=== PATIENT | female | born 1970 | race Caucasian/White ===

== ENCOUNTER 2024-12-20 11:33 | Emergency (ER) | payer OTHER, SELFPAY ==
--- OUTSIDE RECORDS SUMMARY | 2024-12-20 11:35 | XMS_ITS ---
Author Organization [facility] Address [address] [place] [address] Phone Care Team Providers Care Route Returner Name Role Phone Provider, None Primary Care Provider Unavailfreddy e [facility] Status:Enrolled (Active) Start date:10/28/2024 Enrollment date:10/28/2024 Related social drivers of health:Intimate Partner Violence, Social Connections, Alcohol Use, Financial Resource Strain, Depression, Stress, Physical Activity, Food Insecurity, Transportation Needs, Housing Stability, Utilities Continued Care and Services Coordination
--- OUTSIDE RECORDS SUMMARY | 2024-12-20 11:35 | XMS_ITS | Referral Summary ---
Author Organization [facility] Address [address] [place] [address] Care Team Providers Care Band Aid Machine Operator Name Role Phone Efren Ortega MD Primary Care Provider [phone] Allergies No known active allergies Medications ibuprofen (ADVIL,MOTRIN) 600 mg tablet Take 1 tablet (600 mg total) by mouth 4 (four) times a day as needed for pain. With food 16 tablet 8 Active metFORMIN XR (GLUCOPHAGE XR) 500 mg 24 hr tablet Take 1 tablet (500 mg total) by mouth daily with breakfast 30 tablet 11 3 Active Active Problems Problem Noted Date Diagnosed Date Benign paroxysmal positional vertigo of right ea r 11/05/2022 Assessment & Plan (11/05/2022 12:26 PM INK GRINDER): Referral placed to [facility] PT. Symptoms reproduced with amirah maneuver, no nystagmus noted. Reviewed exercises to complete at home, to perform before going to bed at night and before getting out of bed in the morning. Offered meclizine, patient reports she has dramamine at home and prefers PT, has been ongoing for several years. BG today in clinic 146. EKG completed, unchanged from previous. Reviewed fall/safety precautions. Aware to follow up with any new or worsening symptoms. Encounter to establish care 10/17/2022 Assessment & Plan (10/17/2022 2:46 PM INK GRINDER): Reviewed recommended preventive screenings, vaccinations and medical history. Encourage annual flu vaccine. Wear sunscreen/protective clothing when outdoors. Mammogram ordered. Cologuard ordered. Encouraged patient to schedule PAP. Encounter for colorectal cancer screening 2022 Assessment & Plan (10/17/2022 2:45 PM INK GRINDER): Discussed colorectal cancer screening guidelines. No family history of colon cancers. Declines screening with colonoscopy; aware that it is gold standard for CRC screening. Patient is agreeable to cologuard. Aware that kit will be mailed with directions and to call office if not received in 2 weeks. To call office if no results received within 2 weeks of test submission. If normal, recommended formal screening c-scope in 3 years. Controlled type 2 diabetes m nazanin with hyperglycemia, without long-term current use of insulin 10/17/2022 Assessment & Plan (11/05/2022 12:17 PM INK GRINDER): Lab Results Component Value Date HGBA1C 7.2 (H) 10/19/2022 Patient is tolerating metformin 500 mg tablet nightly. Denies any medication side effects. Will repeat labs in 3 months. BG today 146. Assessment & Plan (10/17/2022 2:44 PM INK GRINDER): Discussed concerns for diabetes with history of gestational diabetes, family history and obesity. Will check labs. Encourage healthy lifestyle and diet. Encounter for screening mammogram for breast can cer 10/17/2022 Encounter for screening for lipid disorder 10/17 Vertigo 02/03/2021 Acute bilateral otitis media 02/03/2021 Nausea 02/03/2021 Right corneal abrasion, initial encounter 2018 Mass of breast 04/19/2015 Overview (01/04/2017): Breast mass Immunizations Immunization Administration Dates Next Due Influenza, Unspecified 10/17/2022(Deferr ed: Patient Refused),06/30/2021(Deferred: Patient Refused) MMR 10/14/2015 Tdap 10/11/2015 Social History Tobacco Use Types Packs/Day Years Used Date Smoking Tobacco: Never Smokeless Tobacco: Never Tobacco Cessation:Counseling Given: Not Answered Alcohol Use Standard Drinks/Week Comments No 0 (1 standard drink = 0.6 oz pur e alcohol) PHQ-2 Answer Date Recorded PHQ-2 Total Score (If total score is 3 or more points, staff should administer the PHQ-9) 1 10/17/2022 Comments No Sex and Gender Information Value Date Recorded Sex Assigned at Not on file Legal Sex Female 8:53 PM INK GRINDER Gender Identity Not on file Sexual Orientation Not on file Last Filed Vital Signs Vital Sign Reading Time Taken Comments Blood Pressure 126/88 11/05/2022 11:24 AM INK GRINDER Pulse 76 11/05/2022 11:24 AM INK GRINDER Temperature 36.9 C (98.5 F) 11/05/2022 11:24 AM INK GRINDER Respiratory Rate 18 11/05/2022 11:24 AM INK GRINDER Oxygen Saturation 98% 11/05/2022 11:24 AM INK GRINDER Inhaled Oxygen Concentration - - Weight 126.6 kg (279 lb) 11/05/2022 11:24 AM INK GRINDER Height 167.6 cm (5' 5.98 ) 11/05/2022 11:[address] Body Mass Index 45.05 11/05/2022 11:24 AM INK GRINDER Plan of Treatment Not on file Procedures Procedure Name Priority Date/Time Associated Diagnosis Comments EGFR Routine 10/19/2022 9:08 AM INK GRINDER Encounter to establish care HEMOGLOBIN A1C Routine 10/19/2022 9:08 AM INK GRINDER History of gestational diabetes LIPID PANEL Routine 10/19/2022 9:08 AM INK GRINDER Encounter to establish care Encounter for screening for lipid disorder SCREENING MAMMOGRAM BILATERAL W JONG Schedule Routine, Read Routine (OP Routine) 10/17/2022 4:02 PM INK GRINDER Encounter for screening mammogram for breast cancer GENITAL FLUID PAP SMEAR, THIN PREP WITH HPV EVALUATION Routine 04/08/2016 7:00 PM CDT SERUM HEPATITIS C AB Routine 03/18/2015 1:59 PM CDT from Last 3 Months or Most Recently Relevant to Health Maintenance Results * eGFR (10/19/2022 9:08 AM INK GRINDER) eGFR 96 mL/min/1. 73 m2 [facility] ([facility]IR) Comment: Interpretive Data Reference Interval Normal >/= 90 mL/min/1.73m2 Mildly decreased* 60 - 89 mL/min/1.73m2 Mildly to moderately decreased 45 - 59 mL/min/1.73m2 Moderately to severely decreased 30 - 44 mL/min/1.73m2 Severely decreased 15 - 29 mL/min/1.73m2 Kidney Failure < 15 mL/min/1.73m2 *Relative to young adult level Estimated glomerular filtration rate is determined by the 2020 CKD-EPI equation recommended by the National Kidney Foundation (A Unifying Approach to GFR Estimation: Recommendations of the NKF-ASK Task Force on Reassessing the Inclusion of Race in Diagnosing Kidney Disease, JASN 2020). The CKD-EPI equation should not be used for patients with unstable renal function and has not been validated in children and those over 70. Current interpretive data was last reviewed 2021. Testing performed by: [address] [address] Blood 10/19/2022 9:08 AM INK GRINDER 10/19/2022 2:31 PM INK GRINDER Samy Chopra SIGN BUILDER LAB BLOOD ORDERABLES Final Result SHANDRA MARTINEZ (SAMIR) 1 [facility] Department [place] [address] * (ABNORMAL) Hemoglobin A1c (10/19/2022 9:08 AM INK GRINDER) Hgb A1C 7.2(H) 4.0 - 5.6 % SHANDRA MARTINE[facility] (SAMIR) Comment:Testing performed by : [address] [address] Estimated Average Glucose 160 mg/dL SHANDRA MARTINE[facility] (SAMIR) Comment: The ADA recommends reporting an estimated Average Glucose (eAG) with all Hemoglobin A1c results using the equation derived from a study of 507 normal and diabetic adults. Minority populations were underrepresented and children were not included. (Diabetes Care 31:9755-1879, 2008). The eAG is not equivalent to a fasting glucose. Testing performed by: [address] [place]., [address] Blood 10/19/2022 9:08 AM INK GRINDER 10/19/2022 2:19 PM INK GRINDER Samy Chopra SIGN BUILDER LAB BLOOD ORDERABLES Final Result SHANDRA MARTINEZ (SAMIR) 1 [facility] Department [place] [address] * (ABNORMAL) Lipid panel (10/19/2022 9:08 AM INK GRINDER) Cholesterol 262(H) 30 - 199 mg/dL SHANDRA [facility]INE[facility] (SAMIR) Comment: Interpretive Data Ages < or = 19 years Acceptable: <170 mg/dL Borderline high: 170-199 mg/dL High: >or= 200 mg/dL Ages > or = 20 years Desirable: <200 mg/dL Borderline high: 200-239 mg/dL High: >or= 240 mg/dL Literature References: 1. Expert Panel on Integrated Guidelines for Cardiovascular Health and Risk Reduction in Children and Adolescents. Pediatrics 2011;128:S213 2. NCEP Expert Panel. Circulation 2004;110:227 Current Interpretive Data was last revised on 2018. Testing performed by: [address] [address] Triglycerides 254(H) <=149 mg/dL SHANDRA MARTINEZ (SAMIR) Comment: Interpretive Data Ages < or = 9 years Acceptable: <75 mg/dL Borderline high: 75-99 mg/dL High: >or= 100 mg/dL Ages 10 to 20 years Acceptable: <90 mg/dL Borderline high: 90-129 mg/dL High: >or= 130 mg/dL Ages > or = 20 years Desirable: <150 mg/dL Borderline high: 150-199 mg/dL High: 200-499 mg/dL Very high: >or= 499 mg/dL Literature References: 1. Expert Panel on Integrated Guidelines for Cardiovascular Health and Risk Reduction in Children and Adolescents. Pediatrics 2011;128:S213 2. NCEP Expert Panel. Circulation 2004;110:227 Current Interpretive Data was last revised on 2018. Testing performed by: [address] [address] HDL 50 >=40 mg/dL [facility] ([facility]) Comment: Interpretive Data Ages < or = 19 years Acceptable: >45 mg/dL Borderline low: 40-45 mg/dL Low: <40 mg/dL Ages > or = 20 years Desirable: >or= 60 mg/dL Low: <40 mg/dL Literature References: 1. Expert Panel on Integrated Guidelines for Cardiovascular Health and Risk Reduction in Children and Adolescents. Pediatrics 2011;128:S213 2. NCEP Expert Panel. Circulation 2004;110:227 Current Interpretive Data was last revised on 2018. Testing performed by: [facility], [address] [place] [address]., [address] LDL, calculated 161(H) <=129 mg/dL [facility] (SAMIR) Comment: Interpretive Data Ages < or = 19 years Acceptable: <110 mg/dL Borderline high: 110-129 mg/dL High: >or= 130 mg/dL Ages > or = 20 years Optimal: <100 mg/dL Near optimal: 100-129 mg/dL Borderline high: 130-159 mg/dL High: >160 mg/dL Literature References: 1. Expert Panel on Integrated Guidelines for Cardiovascular Health and Risk Reduction in Children and Adolescents. Pediatrics 2011;128:S213 2. NCEP Expert Panel. Circulation 2004;110:227 Current Interpretive Data was last revised on 2018. Testing performed by: [facility], [address] [place] [address]., [address] Non-HDL Cholesterol 212 mg/dL [facility] (SAMIR) Comment: Interpretive Data Ages < or = 19 years Acceptable: <120 mg/dL Borderline high: 120-144 mg/dL High: >145 mg/dL Ages > or = 20 years When triglycerides are >200 mg/dL, Non-HDL cholesterol is a secondary target of therapy with treatment goals that are 30 mg/dL greater than the LDL cholesterol target. Literature References: 1. Expert Panel on Integrated Guidelines for Cardiovascular Health and Risk Reduction in Children and Adolescents. Pediatrics 2011;128:S213 2. NCEP Expert Panel. Circulation 2004;110:227 Current Interpretive Data was last revised on 2018. Testing performed by: [facility], [address] [place] [address]., [address] Chol/HDL ratio 5 CERNE Paulo MARTINEZ (SAMIR) Comment:Testing performed by : [facility], [address] [place] [address], [place]., [address] Blood 10/19/2022 9:08 AM INK GRINDER 10/19/2022 2:19 PM INK GRINDER Samy Chopra SIGN BUILDER LAB BLOOD ORDERABLES Final Result SHANDRA MARTINEZ (WORDEN) 1 [facility] [place] [address] * (ABNORMAL) SCREENING MAMMOGRAM BILATERAL W JONG (10/17/2022 4:02 PM INK GRINDER) Anatomical Region Laterality Modality Breast Bilateral Mammography 10/17/2022 4:46 PM INK GRINDER Impressions 10/17/2022 4:46 PM INK GRINDER 1. Partially visualized asymmetry in the outer right breast at posterior depth on the CC view. Recommend diagnostic right breast mammogram with possible ultrasound. 2. No evidence of malignancy in the left breast. Recommend screening left breast mammogram in one year. BI-RADS: 0 - Additional imaging evaluation is necessary. The patient will be contacted. Electronically signed by: Igor Unger M.D. Narrative 10/17/2022 4:46 PM INK GRINDER EXAMINATION: SCREENING MAMMOGRAM BILATERAL W JONG ORDERING HEALTHCARE PROVIDER: SAYM CHOPRA HISTORY: Routine screening mammography. COMPARISON: Right breast ultrasound from 03/28/2015 TECHNIQUE: CC and MLO views of the bilateral breasts were obtained with digital technique using breast tomosynthesis with C view. Computer aided detection was utilized. FINDINGS: DENSITY: There are scattered fibroglandular elements in the bilateral breasts. BREASTS: There is a partially visualized asymmetry on the CC view in the outer right breast at posterior depth. There are no suspicious masses, suspicious calcifications, or other suspicious findings in the left breast. . us Samy Chopra SIGN BUILDER IMG MAMMO PROCEDURES Final Result * Genital fluid pap smear, thin prep with HPV evaluation (04/08/2016 7:00 PM CDT) Clinical information SEE NOTE CDR HISTORICAL RESULTS Comment:Information not prov ided LMP SEE NOTE CDR HISTORICAL RESULTS Comment:INFORMATION NOT PROV IDED Previous Pap SEE NOTE CDR HISTORICAL RESULTS Comment:INFORMATION NOT PROV IDED Previous biopsy SEE NOTE CDR HISTORICAL RESULTS Comment:INFORMATION NOT PROV IDED Referral specimen source SEE NOTE CDR HISTORICAL RESULTS Comment:Vagina, Cervix Statement of adequacy SEE NOTE CDR HISTORICAL RESULTS Comment: Satisfactory for evaluation. Endocervical/transformation zone component present. Age and/or menstrual status not provided Referral specimen, interp SEE NOTE CDR HISTORICAL RESULTS Comment:Negative for intraep ithelial lesion or malignancy. Variable comment SEE NOTE CDR HISTORICAL RESULTS Comment: This Pap test has been evaluated with computer assisted technology. Genital 04/08/2016 7:00 PM CDT Narrative CDR HISTORICAL RESULTS - 04/11/2016 9:00 AM CDT Test performed at [facility] [address] Director: SAMUEL SALVADOR MD Historical Provider LAB CYTOLOGY ORDERABLES F inal Result CDR HISTORICAL RESULTS * Serum Hepatitis C ab (03/18/2015 1:59 PM CDT) HCV ab Negative Negative HISTORICAL RESULTS Serum 03/18/2015 1:59 PM CDT Alberto Pink MD LAB BLOOD ORDERABLES Final Result HISTORICAL RESULTS from Last 3 Months or Most Recently Relevant to Health Maintenance [place] [address] [place] [address] AETNA AETNA Care Teams Band Aid Machine Operator Relationship Specialty Start Date End Date Efren Ortega MD [address] [place] [id number] PCP - General Family Medicine 10/17/22
--- OUTSIDE RECORDS SUMMARY | 2024-12-20 11:35 | XMS_ITS | Clinical Summary ---
Author Organization [facility] Address [address] [place] [address] Care Team Providers Care Environmental Emergencies Planner Name Role Phone Efren Ortega MD Primary Care Provider [phone] Allergies No known active allergies Medications ibuprofen [...] 11/05/2022 Assessment & Plan (11/05/2022 12:26 PM MAGNETIC TAPE WINDER): Referral placed to [facility] PT. Symptoms reproduced [...] 10/17/2022 Assessment & Plan (10/17/2022 2:46 PM MAGNETIC TAPE WINDER): Reviewed recommended preventive screenings, vaccinations and medical history. Encourage annual flu vaccine. Wear sunscreen/protective clothing when outdoors. Mammogram ordered. Cologuard ordered. Encouraged patient to schedule PAP. Encounter for colorectal cancer screening 2022 Assessment & Plan (10/17/2022 2:45 PM MAGNETIC TAPE WINDER): Discussed colorectal cancer screening guidelines. No family [...] 10/17/2022 Assessment & Plan (11/05/2022 12:17 PM MAGNETIC TAPE WINDER): Lab Results Component Value Date HGBA1C 7.2 (H) 10/19/2022 Patient is tolerating metformin 500 mg tablet nightly. Denies any medication side effects. Will repeat labs in 3 months. BG today 146. Assessment & Plan (10/17/2022 2:44 PM MAGNETIC TAPE WINDER): Discussed concerns for diabetes with history of [...] Refused),06/30/2021(Deferred: Patient Refused) MMR 10/14/2015 Tdap 10/11/2015 Surgical History Surgery Date Site/Laterality Comments OTHER SURGICAL HISTORY 1992 : OTHER SURGICAL HISTORY Left salpingo-oophorectomy LAPAROSCOPIC CHOLECYSTECTOMY Cholecystectomy, laparoscopic OTHER SURGICAL HISTORY 2015 : Medical History Medical History Date Comments Hx Other Medical ; Outc ome: 7lb(s) 8 oz Male Hx Other Medical ; Outc ome: 39W4D week 9lb(s) Male Family History Medical History Relation Name Comments Diabetes Father Diabetes type II Father Diabetes me llitus type 2; Hyperlipidemia Father High Choleste rol; Hypertension Father Hypertension; Stroke Father Brain cancer Father's Sister Cancer, brai n; Aneurysm Mother Breast cancer Mother Heart disease Mother Lung cancer Paternal Grandfather Cancer, lung; Hypertension Sister Thyroid disease Sister Thyroid dise ase; open heart surgery Son Relation Name Status Comments Father Alive Father's Sister Mother Paternal Grandfather Sister Son Alive Social History Tobacco Use Types Packs/Day Years [...] on file Legal Sex Female 8:53 PM MAGNETIC TAPE WINDER Gender Identity Not on file Sexual Orientation Not on file Obstetrics History Para Term AB IAB SAB Ectopic Multiple Livin g Live Births 2 2 2 Date Outcome GA Total Labor Labor/2nd/3rd Weight Sex Type Anes PTL Radha A1 A5 Name Clin Term Term Last Filed Vital Signs Vital Sign Reading Time Taken Comments Blood Pressure 126/88 11/05/2022 11:24 AM MAGNETIC TAPE WINDER Pulse 76 11/05/2022 11:24 AM MAGNETIC TAPE WINDER Temperature 36.9 C (98.5 F) 11/05/2022 11:24 AM MAGNETIC TAPE WINDER Respiratory Rate 18 11/05/2022 11:24 AM MAGNETIC TAPE WINDER Oxygen Saturation 98% 11/05/2022 11:24 AM MAGNETIC TAPE WINDER Inhaled Oxygen Concentration - - Weight 126.6 kg (279 lb) 11/05/2022 11:24 AM MAGNETIC TAPE WINDER Height 167.6 cm (5' 5.98 ) 11/05/2022 11:[address] Body Mass Index 45.05 11/05/2022 11:24 AM MAGNETIC TAPE WINDER Plan of Treatment Health Maintenance Due Date Last Done Comments Albumin Creatinine Ratio, Urine 1972 Colon Cancer Screening-Colonoscopy 1972 Dilated Eye Exam 1972 Foot Exam 1972 Hepatitis B Screening 1990 Regular Well Visit/Exam 18-64 1990 Pneumococcal vaccine <65 (1 of 2 - PCV) 1991 Cervical Cancer Screening 04/08/2017 04/08/2016, Zoster Vaccine (1 of 2) 2022 Hemoglobin A1C 04/18/2023 10/19/2022 Breast Cancer Screening-Mammogram 10/17/2023 023 Depression Screening 10/17/2023 10/17/2022 Lipid Panel 10/19/2023 10/19/2022 eGFR 10/19/2023 10/19/2022, 05/0 03/2021, 05/12/2019 Influenza Vaccine (#1) 2024 DTaP/Tdap/Td Vaccine (2 - Td or Tdap) 10/11/202508/2016 Hepatitis C Screening Completed 03/18/2015 Procedures Procedure Name Priority Date/Time Associated Diagnosis Comments EGFR Routine 10/19/2022 9:08 AM MAGNETIC TAPE WINDER Encounter to establish care HEMOGLOBIN A1C Routine 10/19/2022 9:08 AM MAGNETIC TAPE WINDER History of gestational diabetes LIPID PANEL Routine 10/19/2022 9:08 AM MAGNETIC TAPE WINDER Encounter to establish care Encounter for screening for lipid disorder SCREENING MAMMOGRAM BILATERAL W JONG Schedule Routine, Read Routine (OP Routine) 10/17/2022 4:02 PM MAGNETIC TAPE WINDER Encounter for screening mammogram for breast cancer GENITAL FLUID PAP SMEAR, THIN PREP WITH HPV EVALUATION Routine 04/08/2016 7:00 PM CDT SERUM HEPATITIS C AB Routine 03/18/2015 1:59 PM CDT from Last 3 Months or Most Recently Relevant to Health Maintenance Results * eGFR (10/19/2022 9:08 AM MAGNETIC TAPE WINDER) eGFR 96 mL/min/1. 73 m2 SHANDRA MARTINEZ (SAMIR) Comment: Interpretive Data Reference Interval Normal [...] was last reviewed 2021. Testing performed by: [address] [address] Blood 10/19/2022 9:08 AM MAGNETIC TAPE WINDER 10/19/2022 2:31 PM MAGNETIC TAPE WINDER Samy Chopra FRAME ALIGNER LAB BLOOD ORDERABLES Final Result SHANDRA [facility] 1 [facility] Department [place] [address] * (ABNORMAL) Hemoglobin A1c (10/19/2022 9:08 AM MAGNETIC TAPE WINDER) Hgb A1C 7.2(H) 4.0 - 5.6 % SHANDRA MARTINEZ ([place]) Comment:Testing performed by : [address] [place] [address] Estimated Average Glucose 160 mg/dL SHANDRA MARTINEZ ([place]) Comment: The ADA recommends reporting an estimated Average Glucose (eAG) with all Hemoglobin A1c results using the equation derived from a study of 507 normal and diabetic adults. Minority populations were underrepresented and children were not included. (Diabetes Care 31:7709-1208, 2008). The eAG is not equivalent to a fasting glucose. Testing performed by: [address] [place] [address] Blood 10/19/2022 9:08 AM MAGNETIC TAPE WINDER 10/19/2022 2:19 PM MAGNETIC TAPE WINDER Samy Chopra NP LAB BLOOD ORDERABLES Final Result SHANDRA MARTINEZ (SAMIR) 1 [facility] Department [place] [address] * (ABNORMAL) Lipid panel (10/19/2022 9:08 AM MAGNETIC TAPE WINDER) Cholesterol 262(H) 30 - 199 mg/dL SHANDRA [...] last revised on 2018. Testing performed by: [facility], [address] [place] [address]., [address] Triglycerides 254(H) <=149 mg/dL SHANDRA MARTINEZ (SAMIR) [...] last revised on 2018. Testing performed by: [facility], [address] [place] [address]., [address] HDL 50 >=40 mg/dL SHANDRA MARTINEZ (SAMIR) Comment: Interpretive Data [...] last revised on 2018. Testing performed by: [address] [address] LDL, calculated 161(H) <=129 mg/dL [facility] ([facility]) Comment: Interpretive Data [...] last revised on 2018. Testing performed by: [address] [address] Non-HDL Cholesterol 212 mg/dL [facility] ([facility]) Comment: Interpretive Data [...] last revised on 2018. Testing performed by: [address] [address] Chol/HDL ratio 5 [facility] ([facility]) Comment:Testing performed by : [address] [address] Blood 10/19/2022 9:08 AM MAGNETIC TAPE WINDER 10/19/2022 2:19 PM MAGNETIC TAPE WINDER Samy Chopra FRAME ALIGNER LAB BLOOD ORDERABLES Final Result SHANDRA MARTINEZ ([place]) 1 [facility] Department [place] [address] * (ABNORMAL) SCREENING MAMMOGRAM BILATERAL W JONG (10/17/2022 4:02 PM MAGNETIC TAPE WINDER) Anatomical Region Laterality Modality Breast Bilateral Mammography 10/17/2022 4:46 PM MAGNETIC TAPE WINDER Impressions 10/17/2022 4:46 PM MAGNETIC TAPE WINDER 1. Partially visualized asymmetry in the outer [...] Igor Unger M.D. Narrative 10/17/2022 4:46 PM MAGNETIC TAPE WINDER EXAMINATION: SCREENING MAMMOGRAM BILATERAL W JONG ORDERING HEALTHCARE PROVIDER: SAMY CHOPRA HISTORY: Routine screening mammography. COMPARISON: Right [...] suspicious findings in the left breast. . Samy Chopra NP IMG MAMMO PROCEDURES Final Result * Genital [...] 04/11/2016 9:00 AM CDT Test performed at [email or web address] [address] Director: SAMUEL SALVADOR MD Historical Provider LAB CYTOLOGY ORDERABLES F inal Result CDR HISTORICAL RESULTS * Serum Hepatitis C ab (03/18/2015 1:59 PM CDT) [facility] HCV ab Negative Negative HISTORICAL RESULTS Serum 03/18/2015 1:59 PM CDT Alberto Pink MD LAB BLOOD ORDERABLES Final Result HISTORICAL RESULTS from Last 3 Months or Most Recently Relevant to Health Maintenance [place] [address] [place] [address] AETNA AETNA Care Teams Environmental Emergencies Planner Relationship Specialty Start Date End Date Efren Ortega MD [address] [place] [address] PCP - General Family Medicine 10/17/22
--- OUTSIDE RECORDS SUMMARY | 2024-12-20 11:35 | XMS_ITS | Clinical Summary ---
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 This disclosure is being madepursuant to the Care Everywhere program and may not contain all information available regarding this patient. Last updated 18.[facility] [employer] Active Problems Problem Noted Date Diagnosed Date Advanced maternal age (AMA), 40 years or greater 06/29/2015 Family history of congenital heart defect 2014 Overview (06/29/2015): Previous child born with heart disease. Estimated Date of Delivery Comme nts Yes 10/14/2015 Social History Tobacco Use Types Packs/Day Years Used Date Smoking Tobacco: Never Assessed Estimated Date of Delivery Comme nts Yes 10/14/2015 Sex and Gender Information Value Date Recorded Sex Assigned at Not on file Gender Identity Not on file Sexual Orientation Not on file Plan of Treatment Health Maintenance Due Date Last Done Comments COLOGUARD (AGES 45-75) - COL ON CA SCREENING 1972 COLON MONITORING 1972 COLONOSCOPY - COLON CA SCREENING 1972 CT COLONOGRAPHY - COLON CA SCREENING 1972 Colorectal Cancer Screening 1972 FIT - COLON CA SCREENING 1972 FLEX SIG - COLON CA SCREENING 1972 LIPID TESTING 1972 MAMMOGRAM 1972 PAP SMEAR 1972 HIV SCREENING 1987 HEPATITIS C SCREENING 10/17/1990 DTAP/TDAP/TD VACCINES (1 - Tdap) 1991 HEPATITIS B VACCINE (1 of 3 - 19+ 3-dose series) 1991 PNEUMOCOCCAL VACCINE 50+ (1 of 1 - PCV) 2022 ZOSTER VACCINE (1 of 2) 2022 COVID-19 VACCINE (1 - 2023-2 5 season) 2024 INFLUENZA VACCINE (#1) 2024 DEPRESSION SCREENING 09/30/2024 Respiratory Syncytial Virus (RSV) Vaccine Pt: or over 60 yrs (1 - 1-dose 75+ series) 2047 HIB VACCINE Aged Out No longer eligi ble based on patient's age to complete this topic HPV VACCINE Aged Out No longer eligi ble based on patient's age to complete this topic MENINGOCOCCAL (Group B) VACC INE SHARED DECISION-MAKING Aged Out No longer eligibl e based on patient's age to complete this topic MENINGOCOCCAL GROUPS A/C/Y/W VACCINE Aged Out No longer eligible b ased on patient's age to complete this topic PNEUMOCOCCAL VACCINE Aged Out No long er eligible based on patient's age to complete this topic
--- OUTSIDE RECORDS SUMMARY | 2024-12-20 11:35 | XMS_ITS | Clinical Summary ---
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 30 Tablet 01/29/2024 Active Social History Tobacco Use Types Packs/Day Years Used Date Smoking Tobacco: Never Smokeless Tobacco: Never Tobacco Cessation:Counseling Given: Not Answered Alcohol Use Standard Drinks/Week Comments Never 0 (1 standard drink = 0.6 oz pur e alcohol) Comments Unknown Sex and Gender Information Value Date Recorded Sex Assigned at Not on file Legal Sex Female 5:43 PM CDT Gender Identity Not on file Sexual Orientation Not on file Last Filed Vital Signs Vital Sign Reading Time Taken Comments Blood Pressure 142/76 01/29/2024 12:19 PM CDT Pulse 74 01/29/2024 12:19 PM CDT Temperature 36.5 C (97.7 F) 01/29/2024 12:04 PM CDT Respiratory Rate 18 01/29/2024 12:19 PM CDT Oxygen Saturation 98% 01/29/2024 12:19 PM CDT Inhaled Oxygen Concentration - - Weight 124.7 kg (275 lb) 01/29/2024 12:04 PM CDT Height 167.6 cm (5' 6 ) 01/29/2024 12:04 PM CDT Body Mass Index 44.39 01/29/2024 12:04 PM CDT Plan of Treatment Not on file Insurance MEDICAID [place] Care Teams 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
[2024-12-20 11:40] VITALS: BP 148/87; PULSE 67; RESP 20; TEMP 36.6; O2SAT 97
--- NOTE | 2024-12-20 12:16 | ED_ITS ---
HPI - General Adult General Chief complaint: Dizziness Stated complaint: ears w/dizzy Source: patient Mode of arrival: ambulatory Limitations: no limitations History of Present Illness HPI narrative: Pt presents for evaluation of bilateral ear discomfort for the past three days. She states she feels like she is ?underwater . She denies any drainage from the ears. She does have some sinus congestion and clear nasal drainage. She denies fever, chills, nausea, vomiting, cough or sore throat. She is not taking any medication for her symptoms. She denies not smoke. Related Data Allergies Allergy/AdvReac Type Severity Reaction Status Date / Time No Known Allergies Allergy Unverified 10/18/17 10:58 Review of Systems Review of Systems: CONSTITUTIONAL: Denies fever, chills, or sweats. EYES: Denies visual changes, redness, or discharge. ENT: Reports bilateral ear discomfort, sensation that she is underwater , sinus congestion and clear nasal drainage CARDIOVASCULAR: Denies chest pain, palpitations, or edema. RESPIRATORY: Denies cough or dyspnea. GASTROINTESTINAL: Denies abdominal pain, nausea, vomiting, or diarrhea. GENITOURINARY: Denies dysuria or hematuria. SKIN: Denies rash or itching. MUSCULOSKELETAL: Denies back pain, joint pain, or myalgia. NEUROLOGIC: Denies headache, numbness, dizziness, or weakness. PSYCHIATRIC: Denies anxiety or depression. [facility] Past Medical History Medical History No pertinent past medical history Surgical History Surgical History No pertinent past surgical history Family History Family History Mother Family history non-contributory Social History Social History Substance use: never Living arrangements: with family Gender identity (if verbalized by the patient): Female Spiritual care concerns: No Exam Narrative: GENERAL: Well-appearing, well-nourished, and in no acute distress. HEAD: Normocephalic, atraumatic. EYES: PERRLA and EOMI. ENT: Nares clear, no rhinorrhea or epistaxis. Mucous membranes moist. Oropharynx without tonsillar hypertrophy exudate or other lesions. Bilateral TMs are erythematous and bulging NECK: Supple. No adenopathy or masses. No carotid bruits or JVD CHEST: Clear to auscultation. No respiratory distress. No wheezes rales or rhonchi HEART: Regular rate and rhythm. No murmur heard. Normal peripheral pulses. ABDOMEN: Soft, nontender, nondistended, normal active bowel sounds. EXTREMITIES: Normal range of motion. No edema. SKIN: Warm, dry, no rash. NEURO: No focal deficits. Alert and oriented x3. PSYCH: Normal mood and affect. Course Course Emergency Course: This is a 54-year-old female who presented for evaluation of bilateral ear discomfort. She has evidence of otitis media on exam. Will tx with augmentin. Increase fluids. OTC meds for symptom management. Follow up with primary provider. Go to the ER for worsening symptoms. Pt in agreement with plan of care. Level of Care: Express Care Visit Vital Signs Vital signs: Vital Signs Temperature 36.6 C 12/20/24 11:40 Pulse Rate 67 12/20/24 11:40 Respiratory Rate 20 12/20/24 11:40 Blood Pressure 148/87 H 12/20/24 11:40 Pulse Oximetry 97 12/20/24 11:40 Oxygen Delivery Room Air 12/20/24 11:40 Temperature 36.6 C 12/20/24 11:40 Pulse Rate 67 12/20/24 11:40 Respiratory Rate 20 12/20/24 11:40 Blood Pressure 148/87 H 12/20/24 11:40 Pulse Oximetry 97 12/20/24 11:40 Oxygen Delivery Room Air 12/20/24 11:40 Medical Decision Making Vital Signs Vital Signs: Vital Signs Temperature 36.6 C 12/20/24 11:40 Pulse Rate 67 12/20/24 11:40 Respiratory Rate 20 12/20/24 11:40 Blood Pressure 148/87 H 12/20/24 11:40 Pulse Oximetry 97 12/20/24 11:40 Oxygen Delivery Room Air 12/20/24 11:40 Temperature 36.6 C 12/20/24 11:40 Pulse Rate 67 12/20/24 11:40 Respiratory Rate 20 12/20/24 11:40 Blood Pressure 148/87 H 12/20/24 11:40 Pulse Oximetry 97 12/20/24 11:40 Oxygen Delivery Room Air 12/20/24 11:40 Discharge Plan Discharge Clinical Impression: Otitis media Patient Disposition: Home, Self-Care Condition: Stable Instructions: Antibiotic Form, Ear Infection (ED) Patient Language: Uzbek Prescriptions: New amoxicillin-pot clavulanate 875-125 mg tablet 1 tablet PO Q12H Qty: 20 0RF Follow-up/Referrals: Jasper Hines MD [Physician] - Time of Disposition: 11:55
== END 2024-12-20 12:00 | disposition home or self-care (01) ==
PROVIDERS: Emergency Provider Nurse Practitioner
DX: H66.93 Otitis media, unspecified, bilateral (principal)
CPT/HCPCS: 99213; G0463